=== PATIENT | female | born 1995 | race Asian ===

== ENCOUNTER 2020-07-09 18:24 | Emergency (ER) | payer MEDICAID ==
[~2020-07-09] VITALS: Ht 154.9 cm; Wt 46.9 kg
[2020-07-09 18:34] VITALS: BP 139/91
--- NOTE | 2020-07-09 18:56 | NUR ---
RAIMUNDO SHARP EVALUATING PT AT THIS TIME
--- NOTE | 2020-07-09 18:59 | NUR ---
24/F C/O SORE THROAT AND NECK/UPPER CHEST DISCOMFORT X 1 WEEK. DENIES FEVER, COUGH, RHINORRHEA, SICK CONTACTS. PT STATES SHE HAS DIGESTION PROBLEMS. TAKING TYLENOL THE LAST 3 DAYS, MINIMAL RELIEF.
--- NOTE | 2020-07-09 19:13 | NUR ---
REPORT TO COMPA BARFIELD. TRANSFER OF CARE AT THIS TIME.
--- NOTE | 2020-07-09 19:14 | NUR ---
received report from rozina morales
--- NOTE | 2020-07-09 19:47 | NUR ---
COVID AND STREP SWABS COLLECTED AND TAKEN TO LAB
[2020-07-09] MEDS ORDERED: KETOROLAC 30 MG/ML VIAL IM ONE (20:20)
[2020-07-09 21:35] VITALS: BP 133/82
== END 2020-07-09 21:15 | disposition home or self-care (01) ==
LOC: MED 18:24
DX: J02.8 Acute pharyngitis due to other specified organisms (principal); Z20.828 Contact with and (suspected) exposure to other viral communicable diseases
CPT/HCPCS: 87081; 96372; 99283; J1885; U0003

== ENCOUNTER 2022-05-20 20:07 | Emergency (ER) | payer MEDICAID, OTHER ==
[~2022-05-20] VITALS: Ht 152.4 cm; Wt 45.4 kg
[2022-05-20 20:29] VITALS: BP 118/63
--- NOTE | 2022-05-20 20:37 | NUR ---
TO LOBBY FOLLOWING TRIAGE. KELSEY SWAB OBTAINED AND SENT TO LAB
[2022-05-20] MEDS ORDERED: PRED20TA5 PO (22:11)
[2022-05-20] MEDS ORDERED: IBUP-1842 PO (22:11)
[2022-05-20] MEDS ORDERED: NIRM1TAB PO (22:11)
--- NOTE | 2022-05-20 22:15 | NUR ---
Patient discharged with v/s stable. Written and verbal after care instructions given and explained. Patient alert, oriented and verbalized understanding of instructions. Ambulatory with steady gait. All questions addressed prior to discharge. ID band removed. Patient advised to follow up with PMD. Rx of RITONAVIR & PREDNISONE given. Patient educated on indication of medication including possible reaction and side effects. Opportunity to ask questions provided and answered.
== END 2022-05-20 22:15 | disposition home or self-care (01) ==
LOC: MED 20:07
DX: U07.1 COVID-19 (principal)
CPT/HCPCS: 71045; 99284

== ENCOUNTER 2023-09-09 08:17 | Emergency (ER) | payer OTHER ==
[~2023-09-09] VITALS: Ht 154.9 cm; Wt 53.5 kg
[~2023-09-09 08:17] MED LIST: IBUP-1842 PO; NAPR-54 PO; NIRM1TAB PO; PRED20TA5 PO
[2023-09-09 08:44] VITALS: BP 110/71; PULSE 88; RESP 18; TEMP 98.9; O2SAT 99
[2023-09-09] MEDS ORDERED: SUD30 PO (09:51)
[2023-09-09] MEDS ORDERED: BENZ200C4 PO (09:51)
[2023-09-09] MEDS ORDERED: MUC600 PO (09:51)
[2023-09-09 10:30] VITALS: BP 110/71; PULSE 88; RESP 18; TEMP 98.9; O2SAT 99
== END 2023-09-09 10:30 | disposition home or self-care (01) ==
LOC: MED 08:17
DX: U07.1 COVID-19 (principal); Z79.899 Other long term (current) drug therapy
CPT/HCPCS: 99283